=== PATIENT | male | born 1980 | race Caucasian/White ===

== ENCOUNTER → 2018-11-15 | Outpatient (CLI) | payer OTHER ==
--- NOTE | 2018-11-15 16:45 | Diagnostic Imaging Report ---
CLINICAL INDICATION: Patient with acute midline back pain. No known injury. EXAM: X-ray of the thoracic spine, AP and lateral views. COMPARISON: None. FINDINGS: Limited visualization of the upper thoracic spine due to overlapping anatomical structures. There is no acute thoracic spine fracture or dislocation. There is no significant bone or joint abnormality. The thoracic vertebrae and intervertebral disc heights are well maintained. IMPRESSION: Unremarkable x-ray of the thoracic spine, as visualized. Dictated by: Dictated on workstation # [id number]
== END ==
LOC: RAD FS 16:13
PROVIDERS: ATTEND Family Medicine
DX: M54.6 Pain in thoracic spine (principal)
CPT/HCPCS: 72070